=== PATIENT | female | born 1935 | race Caucasian/White ===

== ENCOUNTER → 2016-05-05 | Outpatient (CLI) | payer MEDICARE, BC ==
[~2016-05-05] MED LIST: ACCU40TA10 PO; ADVA250A INH; ADVAI250I PO; ALBU1AER INH; ALBUAER3 INH; AMLO5TAB2 PO; AMLO5TAB96 PO; ASPI81CH5 PO; ATOR40TA PO; CYAN1000P IM; LORA-474 PO; LORA1TAB12 PO; NEUR600T PO; NITR.4 SL; PRIL20TA2 PO; QUIN1TAB11 PO; TRIA40P IA; Z.0.OXYGENDME NC
[2016-05-05 09:51] LABS: ALKALINE PHOSPHATASE 96 U/L (45-117); ALT (GPT) 23 U/L (10-53); ANION GAP 9 MEQ/L (5-15); AST (GOT) 13 U/L (15-37); BICARBONATE 25.9 MEQ/L (21.0-32.0); BLOOD UREA NITROGEN 12 MG/DL (7-18); CHLORIDE 108 MEQ/L (98-107); GLOMERULAR FILTRATION RATE 74 ML/MIN (>89); GLUCOSE,FASTING 83 MG/DL (74-99); HDL CHOLESTEROL 48.1 MG/DL (40.0-60.0); LDL CHOLESTEROL 65 MG/DL (0-99); POTASSIUM 4.4 MEQ/L (3.5-5.1); SODIUM (NA) 143 MEQ/L (136-145); TOTAL BILIRUBIN ADULT 0.5 MG/DL (0.2-1.0)
== END ==
LOC: PLAB 07:17
PROVIDERS: ATTEND Internal Medicine Interventional Cardiology
DX: I25.10 Atherosclerotic heart disease of native coronary artery without angina pectoris (principal); E78.00 Pure hypercholesterolemia, unspecified
CPT/HCPCS: 36415; 80053; 80061

== ENCOUNTER → 2016-08-27 | Outpatient (CLI) | payer MEDICARE, BC ==
[~2016-08-27] MED LIST changes: -ACCU40TA10 PO; -AMLO5TAB96 PO; -TRIA40P IA; -Z.0.OXYGENDME NC
[2016-08-27 10:22] LABS: BICARBONATE 27.3 MEQ/L (21.0-32.0)
[2016-08-27 10:24] LABS: POTASSIUM 4.8 MEQ/L (3.5-5.1)
== END ==
LOC: PLAB 07:11
PROVIDERS: ATTEND Family Medicine
DX: I95.9 Hypotension, unspecified (principal); E86.0 Dehydration; R42 Dizziness and giddiness; E05.90 Thyrotoxicosis, unspecified without thyrotoxic crisis or storm; R79.89 Other specified abnormal findings of blood chemistry
CPT/HCPCS: 36415; 80048; 84443

== ENCOUNTER → 2016-11-06 | Outpatient (CLI) | payer MEDICARE, BC ==
[~2016-11-06] MED LIST changes: +CITA10TA4 PO
[2016-11-06 09:41] LABS: ANION GAP 11 MEQ/L (5-15); AST (GOT) 16 U/L (15-37); BICARBONATE 24.8 MEQ/L (21.0-32.0); BLOOD UREA NITROGEN 14 MG/DL (7-18); CHLORIDE 108 MEQ/L (98-107); GLOMERULAR FILTRATION RATE 67 ML/MIN (>89); GLUCOSE,FASTING 88 MG/DL (74-99); POTASSIUM 4.6 MEQ/L (3.5-5.1); SODIUM (NA) 144 MEQ/L (136-145)
[2016-11-06 09:42] LABS: ALT (GPT) 21 U/L (10-53)
[2016-11-06 09:45] LABS: ALKALINE PHOSPHATASE 85 U/L (45-117); HDL CHOLESTEROL 44.1 MG/DL (40.0-60.0); LDL CHOLESTEROL 75 MG/DL (0-99); TOTAL BILIRUBIN ADULT 0.5 MG/DL (0.2-1.0)
== END ==
LOC: PLAB 10:03
PROVIDERS: ATTEND Internal Medicine Interventional Cardiology
DX: I25.10 Atherosclerotic heart disease of native coronary artery without angina pectoris (principal); I11.9 Hypertensive heart disease without heart failure
CPT/HCPCS: 36415; 80053; 80061

== ENCOUNTER → 2017-01-29 | Outpatient (CLI) | payer MEDICARE, BC ==
[~2017-01-29] MED LIST changes: +ATOR40TA16 PO; -CITA10TA4 PO; +FLUO10TA PO; +GABA600T PO; -NEUR600T PO
== END ==
LOC: PLAB 07:49
PROVIDERS: ATTEND Family Medicine
DX: M81.0 Age-related osteoporosis without current pathological fracture (principal); E83.51 Hypocalcemia
CPT/HCPCS: 36415; 82306; 82310; 82565

== ENCOUNTER → 2017-05-13 | Outpatient (CLI) | payer MEDICARE, BC ==
[~2017-05-13] MED LIST changes: -ADVAI250I PO; -ALBU1AER INH; +ALEN1TAB48 PO; -ASPI81CH5 PO; -ATOR40TA PO; -FLUO10TA PO; -LORA-474 PO; -PRIL20TA2 PO; +VITA100064 PO
[2017-05-13 08:44] LABS: ALBUMIN 3.8 GM/DL (3.4-5.0); AST (GOT) 14 U/L (15-37); BLOOD UREA NITROGEN 14 MG/DL (7-18); CALCIUM 9.4 MG/DL (8.5-10.1); CHLORIDE 110 MEQ/L (98-107); CREATININE 0.79 MG/DL (0.50-1.00); GLOMERULAR FILTRATION RATE 70 ML/MIN (>89); GLUCOSE,FASTING 94 MG/DL (74-99); SODIUM (NA) 144 MEQ/L (136-145)
[2017-05-13 08:46] LABS: ALT (GPT) 21 U/L (10-53); CHOLESTEROL 128 MG/DL (120-200)
[2017-05-13 09:12] LABS: ALKALINE PHOSPHATASE 94 U/L (45-117); CHOLESTEROL/ HDL RATIO 3.35 RATIO; HDL CHOLESTEROL 38.2 MG/DL (40.0-60.0); LDL CHOLESTEROL 57 MG/DL (0-99); TOTAL BILIRUBIN ADULT 0.4 MG/DL (0.2-1.0); TOTAL PROTEIN 7.1 GM/DL (6.4-8.2); TRIGLYCERIDES 163 MG/DL (42-150)
== END ==
LOC: PLAB 07:10
PROVIDERS: ATTEND Family Medicine
DX: E78.5 Hyperlipidemia, unspecified (principal); I10 Essential (primary) hypertension; I25.2 Old myocardial infarction; E55.9 Vitamin D deficiency, unspecified; M81.0 Age-related osteoporosis without current pathological fracture; J44.9 Chronic obstructive pulmonary disease, unspecified; M62.838 Other muscle spasm
CPT/HCPCS: 36415; 80053; 80061; 82306; 82607; 84443

== ENCOUNTER → 2017-09-09 | Outpatient (CLI) | payer MEDICARE, BC ==
[2017-09-09 11:21] LABS: FREE T3 2.82 PG/ML (2.18-3.98); FREE T4 0.77 NG/DL (0.76-1.46)
== END ==
LOC: PLAB 07:45
PROVIDERS: ATTEND Family Medicine
DX: E55.9 Vitamin D deficiency, unspecified (principal); R79.89 Other specified abnormal findings of blood chemistry
CPT/HCPCS: 36415; 82306; 84439; 84481